=== PATIENT | female | born 1990 | race Caucasian/White ===

== ENCOUNTER → 2021-09-03 | Outpatient (CLI) | payer OTHER ==
--- NOTE | 2021-09-03 13:05 | RAD ---
INDICATION: Abdomen pain COMPARISON: Ultrasound from same day TECHNIQUE: 5.4mCi of Tc99m Choletec was injected intravenously followed by scintigraphic images of the abdomen. Liquid meal was given and a gallbladder ejection fraction was calculated. FINDINGS: Appropriate radiotracer clearance from the blood pool. Appropriate radiotracer excretion into the biliary tree. Prompt passage of contrast into the small bowel. Visualization of the gallbladder prior to the 60 minute time point. Gallbladder ejection fraction is 62 percent. IMPRESSION: * No scintigraphic evidence of acute cholecystitis or high grade biliary obstruction. * No evidence of biliary dyskinesia. Electronically signed by: Derek Earl MD (09/03/2021 1:03 PM) [id number]
--- NOTE | 2021-09-03 13:21 | RAD ---
Exam Date: 09/03/2021 7:46 AM US ABDOMEN COMPLETE Indication: Reason: N/V/EPIGASTRIC PAIN / Spl. Instructions: / History: . TECHNIQUE: Multiple longitudinal and transverse sonographic images of the abdomen are submitted for interpretation. FINDINGS: The liver is normal in size and echogenicity. The portal vein is patent, with hepatopetal flow. N o focal intrahepatic abnormality is seen. There are small presumed gallbladder polyps, the largest measuring 4 mm. There are no gallstones, ga llbladder wall thickening or pericholecystic fluid. There is no biliary ductal dilatation, with the common bile duct measuring 2 mm. The spleen is normal in size and echogenicity. The visualized abdominal aorta, inferior vena cava an d pancreas are within normal limits. There is no upper abdominal ascites. The kidneys are normal in appearance, with the right kidney measuring 10.3 cm and the left kidney measuring 12.8 cm. IMPRESSION: Presumed gallbladder polyps measuring up to 4 mm, for which follow-up sonogram in 6 months is recomme nded to document stability. Electronically signed by: oJe Khanna MD (09/03/2021 1:18 PM) [id number]
== END ==
LOC: US 07:47
PROVIDERS: ATTEND Internal Medicine Gastroenterology
DX: K82.4 Cholesterolosis of gallbladder (principal); R11.0 Nausea; R10.13 Epigastric pain
CPT/HCPCS: 76700; 78227; A9537